=== PATIENT | female | born 1955 | race Caucasian/White ===

== ENCOUNTER 2018-04-11 13:30 | Emergency (ER) | payer OTHER ==
[~2018-04-11] VITALS: Ht 152.4 cm; Wt 135.2 kg
[~2018-04-11 13:30] MED LIST: AMARYL4 MG PO; BYDUREON2 M1 SQ; GLYBURIDE; INSULIN
[2018-04-11 13:44] VITALS: Ht 152.4 cm; Wt 135.2 kg
[2018-04-11 14:55] LABS: CALCIUM 8.6 mg/dL (8.5-10.1); CARBON DIOXIDE 30.1 mmol/L (21-32); CHLORIDE SERUM 105 mmol/L (98-107); CREATININE SERUM 0.7 mg/dL (0.6-1.0); GFR1 > 60 mL/min; GLUCOSE SERUM 376 mg/dL (74-106); POTASSIUM SERUM 3.7 mmol/L (3.5-5.1); SODIUM SERUM 142 mmol/L (136-145)
[2018-04-11 16:55] VITALS: BP 139/83
== END 2018-04-11 16:55 | disposition home or self-care (01) ==
LOC: ED 13:30
PROVIDERS: Emergency Medicine
DX: G43.909 Migraine, unspecified, not intractable, without status migrainosus (principal); E11.9 Type 2 diabetes mellitus without complications; I10 Essential (primary) hypertension
CPT/HCPCS: 82962; J1200; J1885; J2765

== ENCOUNTER 2018-04-14 20:56 | Emergency (ER) | payer OTHER ==
[~2018-04-14] VITALS: Ht 160 cm; Wt 136.5 kg
[2018-04-14 21:10] VITALS: Ht 160 cm; Wt 136.5 kg
[2018-04-14 23:21] VITALS: BP 163/73
== END 2018-04-14 23:22 | disposition home or self-care (01) ==
LOC: ED 20:56
DX: L03.115 Cellulitis of right lower limb (principal); J45.909 Unspecified asthma, uncomplicated; E11.9 Type 2 diabetes mellitus without complications; Z90.89 Acquired absence of other organs; Z90.49 Acquired absence of other specified parts of digestive tract
CPT/HCPCS: Q0092

== ENCOUNTER 2018-05-22 21:38 | Emergency (ER) | payer OTHER ==
[~2018-05-22] VITALS: Ht 152.4 cm; Wt 135.2 kg
[2018-05-22 22:13] VITALS: Ht 152.4 cm; Wt 135.2 kg
[2018-05-23 00:35] LABS: BASOPHIL % 0.2 % (0-2); PLATELET COUNT 284 x10^3mcL (130-400); RED CELL DISTRIBUTION WIDTH 13.5 % (11.5-14.5)
[2018-05-23 00:47] LABS: CALCIUM 9.3 mg/dL (8.5-10.1); CARBON DIOXIDE 28.1 mmol/L (21-32); CHLORIDE SERUM 103 mmol/L (98-107); GLUCOSE SERUM 291 mg/dL (74-106); POTASSIUM SERUM 3.7 mmol/L (3.5-5.1); SODIUM SERUM 138 mmol/L (136-145)
[2018-05-23 00:52] LABS: ALBUMIN 3.4 g/dL (3.4-5.0); ALKALINE PHOSPHATASE 126 U/L (46-116); ALT/SGPT 15 U/L (14-59); AST/SGOT 11 U/L (15-37); BILIRUBIN TOTAL 0.7 mg/dL (0.20-1.00)
[2018-05-23 00:54] LABS: CREATININE SERUM 0.7 mg/dL (0.6-1.0); GFR1 > 60 mL/min
[2018-05-23 01:24] LABS: UA SPECIFIC GRAVITY >=1.030 (1.005-1.035); microscopic required? YES; urine erythrocyte NEGATIVE (NEGATIVE)
[2018-05-23 04:30] VITALS: BP 156/81
== END 2018-05-23 04:30 | disposition home or self-care (01) ==
LOC: ED 21:38
PROVIDERS: Emergency Medicine
DX: M79.604 Pain in right leg (principal); N39.0 Urinary tract infection, site not specified; E11.65 Type 2 diabetes mellitus with hyperglycemia; J45.909 Unspecified asthma, uncomplicated
CPT/HCPCS: 83880; J1885; Q0092

== ENCOUNTER 2018-08-30 11:53 | Emergency (ER) | payer OTHER ==
[2018-08-30 12:32] LABS: microscopic required? YES; urine erythrocyte NEGATIVE (NEGATIVE)
[2018-08-30 12:47] LABS: BASOPHIL % 0 % (0-2); PLATELET COUNT 229 x10^3mcL (130-400); RED CELL DISTRIBUTION WIDTH 13.4 % (11.5-14.5)
[2018-08-30 12:53] LABS: ALKALINE PHOSPHATASE 124 U/L (46-116); AST/SGOT 11 U/L (15-37); BILIRUBIN TOTAL 0.49 mg/dL (0.20-1.00); CALCIUM 8.4 mg/dL (8.5-10.1); CARBON DIOXIDE 23.6 mmol/L (21-32); CHLORIDE SERUM 105 mmol/L (98-107); CREATININE SERUM 0.7 mg/dL (0.6-1.0); GFR1 > 60 mL/min; GLUCOSE SERUM 263 mg/dL (74-106); LIPASE 130 IU/L (73-393); POTASSIUM SERUM 3.7 mmol/L (3.5-5.1); SODIUM SERUM 138 mmol/L (136-145); TOTAL PROTEIN, SERUM 7.8 g/dL (6.4-8.2)
[2018-08-30 12:54] LABS: ALBUMIN 3.2 g/dL (3.4-5.0)
[2018-08-30 13:02] LABS: ALT/SGPT 16 U/L (14-59)
[2018-08-30 14:30] VITALS: BP 160/79
== END 2018-08-30 14:30 | disposition home or self-care (01) ==
LOC: ED 11:53
PROVIDERS: Emergency Medicine
DX: M54.9 Dorsalgia, unspecified (principal); R11.0 Nausea; R10.9 Unspecified abdominal pain; J45.909 Unspecified asthma, uncomplicated; E11.9 Type 2 diabetes mellitus without complications; Z90.89 Acquired absence of other organs; Z87.19 Personal history of other diseases of the digestive system; Z90.49 Acquired absence of other specified parts of digestive tract
CPT/HCPCS: 36415; J1885; J3010; Q0092

== ENCOUNTER 2019-04-25 16:16 | Emergency (ER) | payer OTHER ==
[~2019-04-25] VITALS: Ht 152.4 cm; Wt 133.8 kg
[2019-04-25 16:28] VITALS: BP 122/77; Ht 152.4 cm; Wt 133.8 kg
== END 2019-04-25 19:46 | disposition home or self-care (01) ==
LOC: ED 16:16
DX: M79.602 Pain in left arm (principal); J45.909 Unspecified asthma, uncomplicated; E11.9 Type 2 diabetes mellitus without complications; Z90.89 Acquired absence of other organs
CPT/HCPCS: J1885; Q0162